=== PATIENT | male | born 1995 | race American Indian/Alaskan Native ===

== ENCOUNTER 2016-05-03 10:42 | Emergency (ER) | payer OTHER ==
--- NOTE | 2016-05-03 11:39 | Emergency Department Report ---
Chief Complaint: Nausea/Vomiting/Diarrhea Stated Complaint: VOMITING/SWEATING/COLD Time Seen by Provider: 05/03/16 11:37 - HPI History of Present Illness: 20 year old male presents with upper left sided abdominal pain with NV and associated lower back pain for 3 days. states that back pain started in the lwoer back first. states having similar problem 6 months ago in which he had to come to the ED. states unable to keep anything down and taking motrin with no relief. - Exam Vital Signs: Vital Signs 05/03/16 11:21 Temperature 98.2 F Pulse Rate 86 Respiratory 20 Rate Blood Pressure 156/86 O2 Sat by Pulse 100 Oximetry Physical Exam: patient appears distressed TTP to upper and left upper abdomen. no CVA tenderness TTP to paraspinal muscles in left lower back. MSE screening note: Focused history and physical exam performed. Due to findings the following was ordered: ED Disposition for MSE Condition: Stable
[2016-05-03 11:55] LABS: Basophils % (Auto) 0.3 % (0.0-1.8); Eosinophils % (Auto) 0.7 % (0.0-4.3); Hematocrit 50.5 % (35.5-45.6); Hemoglobin 16.1 gm/dl (11.8-15.2); Mean Corpuscular HGB Conc 32 % (32-34); Mean Corpuscular Hemoglobin 26 pg (28-32); Mean Corpuscular Volume 81 fl (84-94); Platelet Count 172 K/mm3 (140-440); Red Blood Count 6.26 M/mm3 (3.65-5.03); Red Cell Distribution Width 14.5 % (13.2-15.2); White Blood Count 4.8 K/mm3 (4.5-11.0)
[2016-05-03 12:09] LABS: Alanine Aminotransferase 34 units/L (7-56); Albumin 4.2 g/dL (3.9-5); Albumin/Globulin Ratio 1.1 %; Alkaline Phosphatase 163 units/L (35-129); Anion Gap 18 mmol/L; Bilirubin,Total 0.9 mg/dL (0.1-1.2); Blood Urea Nitrogen 8 mg/dL (9-20); Calcium 9.3 mg/dL (8.4-10.2); Carbon Dioxide 26 mmol/L (22-30); Chloride 102.6 mmol/L (98-107); Glucose 113 mg/dL (75-100); Lipase 25 units/L (13-60); Potassium 4.8 mmol/L (3.6-5.0); Sodium 142 mmol/L (137-145); Total Protein 7.9 g/dL (6.3-8.2)
[2016-05-03] MEDS ORDERED: ZOFRAN IV ONE (18:02)
[2016-05-03] MEDS ORDERED: PEPCID IV ONE (18:02)
[2016-05-03] MEDS ORDERED: VALIUM IV ONE (18:02)
--- NOTE | 2016-05-03 18:03 | Emergency Department Report ---
ED Abdominal Pain HPI - General Chief Complaint: Nausea/Vomiting/Diarrhea Stated Complaint: VOMITING/SWEATING/COLD Time Seen by Provider: 05/03/16 17:54 Source: patient, RN notes reviewed Mode of arrival: Ambulatory Limitations: No Limitations - History of Present Illness Initial Comments: This is a 20-year-old male, previously unknown to me. He reports a past medical history of cannabis use. He smokes quite a bit. Patient presents to the ER complaining of diffuse abdominal pain, nausea and vomiting. Abdominal pain is crampy, and all over. It increases with palpation and range of motion. It decreases with rest. He is passing gas. He is defecating. There is no testicular pain. No irritative or obstructive urinary symptoms. Last considered marijuana yesterday. He is not homicidal. He is not suicidal. MD Complaint: abdominal pain -: Gradual Location: diffuse Severity: moderate Severity scale (0 -10): 10 Quality: stabbing, aching Consistency: intermittent Improves With: rest Worsens With: movement Associated Symptoms: nausea, vomiting - Related Data Previous Rx's Medication Instructions Recorded Last Taken Type Dicyclomine [Bentyl] 10 mg PO QID PRN #20 capsule 05/03/16 Unknown Rx Famotidine [Pepcid] 20 mg PO QDAY #20 tablet 05/03/16 Unknown Rx Ondansetron [Zofran Odt] 4 mg PO QID PRN #20 tab.rapdis 05/03/16 Unknown Rx Promethazine [Phenergan SUPPOS] 50 mg SC Q6H PRN #15 supp.rect 05/03/16 Unknown Rx Allergies Allergy/AdvReac Type Severity Reaction Status Date / Time Penicillins Allergy Swelling Verified 05/03/16 11:20 ED Review of Systems ROS: Stated complaint: VOMITING/SWEATING/COLD Other details as noted in HPI Constitutional: chills, malaise Eyes: denies: eye discharge ENT: denies: epistaxis Respiratory: denies: cough Cardiovascular: denies: chest pain Gastrointestinal: abdominal pain, nausea, vomiting Genitourinary: denies: urgency, dysuria, testicular pain Musculoskeletal: myalgia Skin: denies: rash, lesions Neurological: denies: headache, weakness, paresthesias Psychiatric: denies: anxiety, depression, homicidal thoughts, suicidal thoughts ED Past Medical Hx - Past Medical History Previous Medical History?: Yes Additional medical history: ADHD, Heart murmur, Hx. of Rheumatic fever - Surgical History Past Surgical History?: Yes Additional Surgical History: PE tubes - Social History Smoking Status: Current Every Day Smoker Substance Use Type: Alcohol, Marijuana, Prescribed - Medications Home Medications: Home Medications Medication Instructions Recorded Confirmed Last Taken Type Dicyclomine [Bentyl] 10 mg PO QID PRN #20 capsule 05/03/16 Unknown Rx Famotidine [Pepcid] 20 mg PO QDAY #20 tablet 05/03/16 Unknown Rx Ondansetron [Zofran Odt] 4 mg PO QID PRN #20 tab.rapdis 05/03/16 Unknown Rx Promethazine [Phenergan SUPPOS] 50 mg SC Q6H PRN #15 supp.rect 05/03/16 Unknown Rx ED Physical Exam - General Limitations: No Limitations General appearance: alert, in distress - Head Head exam: Present: atraumatic, normocephalic - Eye Eye exam: Present: normal appearance, EOMI. Absent: nystagmus - ENT ENT exam: Present: normal exam, normal orophraynx, mucous membranes moist - Neck Neck exam: Present: normal inspection, full ROM. Absent: tenderness, meningismus - Respiratory Respiratory exam: Present: normal lung sounds bilaterally. Absent: respiratory distress, wheezes, rales, rhonchi, stridor, chest wall tenderness - Cardiovascular Cardiovascular Exam: Present: regular rate, normal rhythm, normal heart sounds. Absent: bradycardia, tachycardia, irregular rhythm, systolic murmur, diastolic murmur, rubs, gallop - GI/Abdominal GI/Abdominal exam: Present: soft, tenderness, normal bowel sounds. Absent: distended, guarding, rebound, rigid, pulsatile mass - Rectal Rectal exam: Present: deferred - exam: Present: normal inspection, other (there is no testicular tenderness. There is normal testicular lie. There is normal cremasteric reflex bilaterally. ). Absent: testicular tenderness - Extremities Exam Extremities exam: Present: normal inspection, full ROM, normal capillary refill. Absent: tenderness, pedal edema, joint swelling, calf tenderness - Back Exam Back exam: Present: normal inspection, full ROM. Absent: tenderness, CVA tenderness (R), CVA tenderness (L), muscle spasm, paraspinal tenderness, vertebral tenderness - Neurological Exam Neurological exam: Present: alert, oriented X3, normal gait, other (Extraocular movements intact. Tongue midline. No facial droop. Facial sensation intact to light touch in the V1, V2, V3 distribution bilaterally. 5 and 5 strength in 4 extremities.. Sensation is intact to light touch in 4 extremities.). Absent : motor sensory deficit - Psychiatric Psychiatric exam: Present: anxious - Skin Skin exam: Present: warm, dry, intact, normal color. Absent: rash ED Course Vital Signs 05/03/16 05/03/16 05/03/16 11:21 17:56 20:01 Temperature 98.2 F Pulse Rate 86 94 H Respiratory 20 16 Rate Blood Pressure 156/86 Blood Pressure 184/81 169/87 [Left] O2 Sat by Pulse 100 95 Oximetry 05/03/16 20:12 Temperature Pulse Rate 84 Respiratory Rate Blood Pressure 189/89 Blood Pressure [Left] O2 Sat by Pulse Oximetry - Reevaluation(s) Reevaluation #1: 05/03/16 19:17 Differential diagnosis: Renal colic, colitis, diverticulitis, cyclic vomiting syndrome, cannabinoid hyperemesis syndrome assessment and plan: 20-year-old male with abdominal pain, nausea, vomiting, chronic marijuana consumption most likely has cannabinoid hyperemesis syndrome. He will be treated empirically with diazepam, Zofran, IV fluids. Elevated blood pressures appreciated, most likely secondary to his underlying symptomatology. He is clinically sober. Does not require 1013 at this time. Reevaluation #2: 05/03/16 20:11 CAT scan of the abdomen and pelvis negative. The appendix is not discretely identified, but there are no secondary signs of appendicitis. Furthermore, the patient has no right lower quadrant pain, tenderness, rebound or guarding. Hypertension is improved, but he is still actively vomiting and having difficulty tolerating liquid feeds. Reglan is ordered. care transferred to Dr Demarco Morales. Plan to discharge if patient is able to tolerate liquid feeds, and vomiting subsides. If patient is unable to tolerate liquid feeds, plan to admit ED Medical Decision Making - Lab Data Result diagrams: 05/03/16 11:43 05/03/16 11:43 Vital Signs 05/03/16 05/03/16 11:21 17:56 Temperature 98.2 F Pulse Rate 86 94 H Respiratory 20 16 Rate Blood Pressure 156/86 Blood Pressure 184/81 [Left] O2 Sat by Pulse 100 95 Oximetry Lab Results 05/03/16 05/03/16 Range/Units 11:43 11:43 WBC 4.8 (4.5-11.0) K/mm3 RBC 6.26 H (3.65-5.03) M/mm3 Hgb 16.1 H (11.8-15.2) gm/dl Hct 50.5 H (35.5-45.6) % MCV 81 L (84-94) fl MCH 26 L (28-32) pg MCHC 32 (32-34) % RDW 14.5 (13.2-15.2) % Plt Count 172 (140-440) K/mm3 Lymph % (Auto) 24.1 (13.4-35.0) % [place] % (Auto) 9.5 H (0.0-7.3) % Eos % (Auto) 0.7 (0.0-4.3) % Baso % (Auto) 0.3 (0.0-1.8) % Lymph # 1.2 (1.2-5.4) K/mm3 [place] # 0.5 (0.0-0.8) K/mm3 Eos # 0.0 (0.0-0.4) K/mm3 Baso # 0.0 (0.0-0.1) K/mm3 Seg Neutrophils % 65.4 (40.0-70.0) % Seg Neutrophils # 3.2 (1.8-7.7) K/mm3 Sodium 142 (137-145) mmol/L Potassium 4.8 (3.6-5.0) mmol/L Chloride 102.6 (98-107) mmol/L Carbon Dioxide 26 (22-30) mmol/L Anion Gap 18 mmol/L BUN 8 L (9-20) mg/dL Creatinine 0.5 L (0.8-1.5) mg/dL Estimated GFR > 60 ml/min BUN/Creatinine Ratio 16.00 % Glucose 113 H (75-100) mg/dL Calcium 9.3 (8.4-10.2) mg/dL Total Bilirubin 0.9 (0.1-1.2) mg/dL AST 33 (5-40) units/L ALT 34 (7-56) units/L Alkaline Phosphatase 163 H (35-129) units/L Total Protein 7.9 (6.3-8.2) g/dL Albumin 4.2 (3.9-5) g/dL Albumin/Globulin Ratio 1.1 % Lipase 25 (13-60) units/L - Radiology Data Radiology results: report reviewed, image reviewed CAT scan of the abdomen and pelvis negative for acute disease Critical care attestation.: If time is entered above; I have spent that time in minutes in the direct care of this critically ill patient, excluding procedure time. ED Disposition Clinical Impression: Abdominal pain Disposition: DISCHARGED TO HOME OR SELFCARE Is pt being admited?: No Does the pt Need Aspirin: No Condition: Good Instructions: Cannabis Abuse (ED), Abdominal Pain (ED), Acute Nausea and Vomiting (ED) Additional Instructions: Discontinue consumption of marijuana. It is bad fair health. He is a most likely reason for her symptoms. Take the nausea medication, Zofran as directed. Take the pain medication, Bentyl as directed. Follow up with a primary care doctor or [facility] within the next [address] Morrison is a local [facility]. Return to the ER right away with new pain, worsened pain, migration of pain, fevers or chills, intractable nausea or vomiting, inability to tolerate liquid feeds. If you take the Zofran, and you are still experiencing nausea and vomiting, he may then take a Phenergan suppository/rectal insertion as directed. Prescriptions: Dicyclomine [Bentyl] 10 mg PO QID PRN #20 capsule PRN Reason: Pain Famotidine [Pepcid] 20 mg PO QDAY #20 tablet Promethazine [Phenergan SUPPOS] 50 mg SC Q6H PRN #15 supp.rect PRN Reason: Nausea Ondansetron [Zofran Odt] 4 mg PO QID PRN #20 tab.rapdis PRN Reason: Nausea Referrals: ARIANE GREENWOOD JR, MD [Primary Care Provider] - 3-5 Days KATIE MORRISON MD [Staff Physician] - 3-5 Days
[2016-05-03] MEDS ORDERED: NACL 0.9% 500 ML IV SCH (19:00)
[2016-05-03] MEDS ORDERED: CATAPRES ONE (19:32)
--- NOTE | 2016-05-03 19:44 | Cat Scan Report ---
FINAL REPORT PROCEDURE: CT ABDOMEN PELVIS W CON TECHNIQUE: Computerized axial tomography of the abdomen and pelvis was performed after the IV injection of iodinated nonionic contrast. HISTORY: abdominal pain COMPARISON: No prior studies are available for comparison. FINDINGS: Visualized lower thorax: No significant abnormality. Liver: Normal size and attenuation. Spleen: Normal size and attenuation. Gallbladder and biliary system: Normal. Pancreas: Normal. Adrenals: Normal. Kidneys: 6 millimeter low-density cyst in the left kidney midpole. GI tract: No evidence of bowel obstruction or acute inflammation. The appendix is not diagnostically visualized however. No pericecal inflammatory changes are identified. Lymph nodes and mesentery: Normal. Vasculature: Normal. Bladder: Normal. Reproductive organs: Normal. Peritoneum: No free fluid. Musculoskeletal structures: No significant abnormality. Other: None. IMPRESSION: Limited visualization of the appendix. No obvious inflammatory process is seen. No evidence of bowel obstruction
[2016-05-03] MEDS ORDERED: REGLAN IV ONE (19:59)
[2016-05-03] MEDS ORDERED: CATAPRES PO ONE (20:10)
[2016-05-03 20:12] VITALS: BP 189/89
== END 2016-05-03 21:24 | disposition home or self-care (01) ==
LOC: ED 10:42
DX: R10.84 Generalized abdominal pain (principal); R11.2 Nausea with vomiting, unspecified; F90.9 Attention-deficit hyperactivity disorder, unspecified type; F17.200 Nicotine dependence, unspecified, uncomplicated; F12.10 Cannabis abuse, uncomplicated; Z88.0 Allergy status to penicillin
CPT/HCPCS: 36415; 74177; 80053; 83690; 85025; 96374; 96375; 99284; J2405; J2765; J3360; J7040; Q9967

== ENCOUNTER 2021-11-19 16:02 | Emergency (ER) | payer OTHER | END 2021-11-19 17:34 | disposition left against medical advice (07) | LOC: ED 16:02 | DX: R06.02 Shortness of breath (principal); Z53.21 Procedure and treatment not carried out due to patient leaving prior to being seen by health care provider ==